=== PATIENT | female | born 1955 | race Caucasian/White ===

== ENCOUNTER → 2018-04-22 | Outpatient (CLI) | payer BC ==
[~2018-04-22] MED LIST: ASPIRIN 81M81 MG/TA2 PO; OMEGA 31000 MG PO; OSCAL 500 TAB500 MG PO; PRILOTC PO
== END ==
LOC: COL.RAD 09:01
DX: R19.09 Other intra-abdominal and pelvic swelling, mass and lump (principal)
CPT/HCPCS: A9572